=== PATIENT | female | born 1985 | race American Indian/Alaskan Native ===

== ENCOUNTER 2017-03-02 12:40 | Emergency (ER) | payer OTHER ==
--- NOTE | 2017-03-02 12:57 | Emergency Department Report ---
Entered by SAIMA LANGSTON, acting as scribe for SMITH FARNSWORTH PA. Chief Complaint: Vaginal Bleeding Stated Complaint: POSS MISCARRIAGE Time Seen by Provider: 03/02/17 12:48 - HPI History of Present Illness: Patient presents to the ED c/o vaginal bleeding and clotting that started this morning. Pt states that she has only changed her feminine pad once today. Denies abdominal pain, back pain, urinary frequency, urgency, dysuria, nausea, and vomiting. Notes she is currently , but is doesn't know how far along she is. - ROS Review of Systems: All system are negative unless stated in HPI above. - Exam Vital Signs: Vital Signs 03/02/17 12:44 Temperature 98.4 F Pulse Rate 86 Respiratory 18 Rate Blood Pressure 130/83 O2 Sat by Pulse 100 Oximetry Physical Exam: General: well nourished, well developed, nontoxic in appearance, in no acute distress Abdomen: soft, non-tender, non-distended. Cardiovascular: S1/S2 regular rate and rhythm. No murmur. MSE screening note: Focused history and physical exam performed. Due to findings the following was ordered: ED Medical Decision Making - Medical Decision Making Medical decision making: Patient seen by provider in triage area. Appropriate protocol activated and patient to main ED to be seen by provider ED Disposition for MSE Condition: Stable This documentation as recorded by the scribe,SAIMA LANGSTON,accurately reflects the service I personally performed and the decisions made by me,SMITH FARNSWORTH PA.
[2017-03-02 13:16] LABS: Basophils % (Auto) 0.4 % (0.0-1.8); Eosinophils % (Auto) 2.9 % (0.0-4.3); Hematocrit 34.7 % (30.3-42.9); Mean Corpuscular HGB Conc 32 % (30-34); Mean Corpuscular Hemoglobin 27 pg (28-32); Mean Corpuscular Volume 84 fl (79-97); Platelet Count 249 K/mm3 (140-440); Red Blood Count 4.14 M/mm3 (3.65-5.03); Red Cell Distribution Width 16.1 % (13.2-15.2); White Blood Count 9.4 K/mm3 (4.5-11.0)
[2017-03-02 13:52] LABS: Bilirubin,Urine NEG (Negative); Blood,Urine LG (Negative); Ketones,Urine NEG (Negative); Leukocyte Esterase,Urine NEG (Negative); Mucus,Urine FEW /HPF; Nitrite,Urine NEG (Negative); Protein,Urine <15 mg/dL mg/dL (Negative); Urobilinogen,Urine < 2.0 mg/dL (<2.0)
--- NOTE | 2017-03-02 16:10 | Ultrasound Report ---
ULTRASOUND OB LESS THAN 14 WEEKS - TRANSABDOMINAL AND TRANSVAGINAL INDICATION: , abdominal pain. Serum beta-hCG of 99.84 units. COMPARISON: None similar during this gestation. FINDINGS: Transabdominal and transvaginal pelvic sonography performed in this patient with LMP of 01/18/2017 and estimated menstrual age of 6 weeks and 1 day and EDC of 10/25/2017. An anteverted uterus measuring approximately 9.8 x 5.9 x 6.4 cm demonstrates endometrial thickness of approximately 1.1 cm towards the fundus, endovaginal image 4. Approximately 0.9 x 0.4 cm hypoechoic fibroid may be present anteriorly, endovaginal image 10. No significant pelvic free fluid. Right ovary is 3.2 x 2.2 x 4.9 while the left ovary is 3.9 x 2.2 x 3.4 cm. CONCLUSION: 1. No sonographic confirmation of a viable intrauterine gestation at this time, as described. 2. Small fibroid possible and both ovaries visualized, as above. Please also correlate clinically for accuracy of the LMP and with followup serum beta-hCG values, as warranted. Thank you for the opportunity to participate in this patient's care.
[2017-03-02] MEDS ORDERED: TYLENOL PO ONE (16:36)
[2017-03-02 17:55] VITALS: BP 119/66
--- NOTE | 2017-03-02 22:32 | Emergency Department Report ---
HPI - General Chief Complaint: Vaginal Bleeding Time Seen by Provider: 03/02/17 12:55 - HPI HPI: The patient is a 31-year-old , unknown EGA, female who presents for evaluation of abdominal pain and vaginal bleeding. The patient reports abdominal pain for the past one week, midline pelvic and suprapubic in location , cramping in quality, 5/10 in severity, constant since onset. She has also experienced mild spotting of vaginal blood as well. The patient denies fever, chills, night sweats, diarrhea, blood in the stool, dark tarry stool, dysuria, hematuria, flank pain, genital discharge, inability to pass flatus. ED Past Medical Hx - Past Medical History Previous Medical History?: No - Surgical History Additional Surgical History: hernia repair - Social History Smoking Status: Never Smoker Substance Use Type: Alcohol - Medications Home Medications: Home Medications Medication Instructions Recorded Confirmed Last Taken Type Acetaminophen/Codeine [Tylenol #3] 1 tab PO Q6H PRN #7 tab 03/02/17 Unknown Rx Cyanocobalamin/Folic Acid [Vitamin 1 tab PO QDAY 03/02/17 03/02/17 03/01/17 History H22-Qghxy Acid Tablet] Ondansetron [Zofran TAB] 4 mg PO Q8HR PRN #15 tablet 03/02/17 Unknown Rx Vit-Fe Fumar-FA [ 1 tab PO QDAY 03/02/17 03/02/17 03/01/17 History Vitamin] Pyridoxine [Vitamin B-6] 50 mg PO QDAY 03/02/17 03/02/17 03/01/17 History 1 ED Review of Systems ROS: Stated complaint: POSS MISCARRIAGE Other details as noted in HPI Constitutional: denies: fever ENT: denies: throat or neck pain Respiratory: denies: cough, shortness of breath Cardiovascular: denies: chest pain Endocrine: denies unexplained weight loss or gain Gastrointestinal: reports abdominal pain, nausea Genitourinary: reports VB denies: dysuria Musculoskeletal: denies: leg swelling Skin: denies: rash Neurological: denies: headache Hematological/Lymphatic: denies: easy bleeding or easy bruising Psych: denies sadness or hopelessness Physical Exam - Physical Exam Vital Signs: Vital Signs 03/02/17 12:44 Temperature 98.4 F Pulse Rate 86 Respiratory 18 Rate Blood Pressure 130/83 O2 Sat by Pulse 100 Oximetry Physical Exam: General: well-nourished, well-developed, no acute distress Head: Normocephalic, atraumatic Eyes: normal sclera ENT: Mucous membranes are pink and moist Neck: trachea midline, neck supple, No neck stiffness, no cervical adenopathy Respiratory: Breath sounds equal bilaterally, no wheezing, rales, or rhonchi Cardio: S1 and S2 present, no murmurs, rubs, gallops, capillary refill is brisk Abdomen: Normoactive bowel sounds, soft abdomen, suprapubic abdominal pain, no rigidity, no guarding or rebound tenderness Chest WALL/Back: No tenderness to palpation of the chest wall, no CVA tenderness with percussion Musc: No pitting edema Skin: No rash Neuro: no facial drooping, normal speech Psych: Normal affect ED Course Vital Signs 03/02/17 12:44 Temperature 98.4 F Pulse Rate 86 Respiratory 18 Rate Blood Pressure 130/83 O2 Sat by Pulse 100 Oximetry ED Medical Decision Making - Lab Data Result diagrams: 03/02/17 13:03 - Medical Decision Making The patient was seen and examined by myself. The patient is placed on a commercial loan collection officer and continuous pulse ox. On initial evaluation, the patient was found to be in no distress. Evaluation orders were placed. The patient given a tablet of Tylenol for pain. Lab results revealed hCG of 99, and otherwise are reassuring including non-concerning levels of RBC, hemoglobin, hematocrit, and platelets. Ultrasound of the pelvis is negative for intrauterine and is unable to rule out ectopic present. The patient was reevaluated and reported that their symptoms were improved. the patient is stable for discharge with outpatient follow-up. The patient is given follow-up and return instructions, including to obtain repeat beta hCG in 48 hours. The patient expressed understanding and agreed with the plan. The patient is discharged in stable condition. Critical care attestation.: If time is entered above; I have spent that time in minutes in the direct care of this critically ill patient, excluding procedure time. ED Disposition Clinical Impression: Threatened miscarriage in early , Abdominal pain during in first trimester Disposition: DISCHARGED TO HOME OR SELFCARE Is pt being admited?: No Does the pt Need Aspirin: No Condition: Stable Instructions: Threatened Miscarriage (ED), Abdominal Pain (ED) Additional Instructions: Your ultrasound was unable to identify a normal intrauterine , and also was not able to rule out an ectopic . Make sure to follow-up with your [facility] within the next 48 hours for repeat B-HCG testing and trending. Your beta hCG level should double in 2 days if your is progressing as normal. You could have an ectopic and you must immediately present to an emergency department should you develop worsening of your symptoms or severe pain, vaginal bleeding, lightheadedness, passing out, confusion, or fever. Referrals: [facility] [Provider Group] - 3-5 Days Time of Disposition: 17:33
== END 2017-03-02 17:53 | disposition home or self-care (01) ==
LOC: ED 12:40
DX: O20.0 Threatened abortion (principal); Z3A.01 Less than 8 weeks gestation of pregnancy
CPT/HCPCS: 36415; 76801; 76817; 81001; 84702; 84703; 85025; 86850; 86900; 86901

== ENCOUNTER 2017-10-19 14:16 | Outpatient (CLI) | payer MEDICAID, OTHER ==
[2017-10-19] MEDS ORDERED: LACTATED RINGERS 500 ML IV ONE (14:21)
[2017-10-19 14:59] LABS: Urine Drugs of Abuse Note Disclamer
[2017-10-19 15:29] LABS: Bacteria,Urine 1+ /HPF (Negative); Bilirubin,Urine NEG (Negative); Blood,Urine NEG (Negative); Ketones,Urine NEG (Negative); Leukocyte Esterase,Urine NEG (Negative); Mucus,Urine 2+ /HPF; Nitrite,Urine NEG (Negative); Urobilinogen,Urine < 2.0 mg/dL (<2.0)
[2017-10-19 15:51] VITALS: BP 100/60
== END 2017-10-19 16:35 | disposition home or self-care (01) ==
LOC: TRG 14:16
PROVIDERS: ATTEND Obstetrics & Gynecology
DX: O47.03 False labor before 37 completed weeks of gestation, third trimester (principal); Z3A.28 28 weeks gestation of pregnancy
CPT/HCPCS: 80307; 81001

== ENCOUNTER 2017-11-11 14:00 | Outpatient (CLI) | payer MEDICAID, OTHER ==
[2017-11-11 15:00] VITALS: BP 96/54
[2017-11-11] MEDS ORDERED: LACTATED RINGERS 500 ML IV ONE (15:00)
[2017-11-11 15:04] LABS: Bacteria,Urine 1+ /HPF (Negative); Bilirubin,Urine NEG (Negative); Blood,Urine NEG (Negative); Color,Urine Yellow (Yellow); Mucus,Urine 3+ /HPF; Nitrite,Urine NEG (Negative); Urobilinogen,Urine < 2.0 mg/dL (<2.0)
== END 2017-11-11 15:29 | disposition home or self-care (01) ==
LOC: TRG 14:00
PROVIDERS: ATTEND Obstetrics & Gynecology Gynecology
DX: O47.03 False labor before 37 completed weeks of gestation, third trimester (principal); Z3A.31 31 weeks gestation of pregnancy
CPT/HCPCS: 59025; 81001